=== PATIENT | female | born 1950 | race Caucasian/White ===

== ENCOUNTER → 2023-11-04 11:53 | Outpatient (REF) | payer OTHER, SELFPAY | LOC: HWRAD 11:53 | PROVIDERS: ATTENDING PHYSICIAN Nurse Practitioner | DX: M25.521 Pain in right elbow (principal) | CPT/HCPCS: 73080 ==

== ENCOUNTER 2023-11-15 16:26 | Day surgery (SDC) | payer OTHER, SELFPAY ==
[2023-11-15] VITALS (16 sets, daily range): BP systolic 99–164; BP diastolic 48–81; BMI 29.7; BMI 29.4
--- NOTE | 2023-11-15 11:06 | ED.GENMED ---
History of Present Illness
<Nohemy Antoine MD, Resident - Last Filed: 11/15/23 14:22>
General
Chief Complaint: Abdominal Pain
Time Seen by Provider: 11/15/23 10:50
History of Present Illness
History of Present Illness:
73-year-old female presented today from severe pain at her right lower abdominal area. The patient reported that her pain started last night last night around her belly and following she started to feel more pain at the right lower side. The
patient reports she was not able to take a deep sleep due this pain. She rated her pain as 10/10. the patient reports that she had bowel movement this morning. She denies throwing up, diarrhea, bleeding, shortness of breath and chest pain. Her
last oral taking was at 7.00 am ti his morning and she took her medications with some water.
PMH: GERD, Hemorrhoids, sleep apnea
If applicable-neuro sx onset
Date of onset of symptoms: 11/15/23
Past History
<Nohemy Antoine MD, Resident - Last Filed: 11/15/23 14:22>
Past History
ED Past Medical History: GERD and HTN
ED Past Surgical History: None
Social History
Tobacco: Non-smoker
Alcohol: None
Personal:
Phy Exam
<Nohemy Antoine MD, Resident - Last Filed: 11/15/23 14:22>
General Physical Exam
General Presentation: well appearing and mild distress
General age: appears stated age
General Skin: dry
General Habitus: obese
General Mental: alert
Cardiovascular Exam
Cardiovascular Exam: no edema
Pulmonary Exam
Pulmonary Exam: no respiratory distress
Gastrointestinal Exam
Gastrointestinal Exam: rebound and tender
Palpation: right lower quadrant: Moderate tenderness
Neurological Exam
Neurological Exam: alert and oriented x3
Course
<Nohemy Antoine MD, Resident - Last Filed: 11/15/23 14:22>
Orders/Labs/Results
Orders:
Orders
11/15/23 Breakfast
NPO
Allow oral meds: Yes
Allow clear liquids: No
11/15/23 10:55
CT Abd/pelvis W Iv Cont Urgent
Comment:
Reason For Exam: right lower quadrant abdominal pain.
11/15/23 10:59
0.9% Sodium Chloride 1000 ml [Nss] 1,000 ml IV BOLUS
Ketorolac [Toradol] 30 mg IV NOW STA
Morphine Sulfate 4 mg IV NOW STA
11/15/23 11:41
Complete Blood Count/With Diff Urgent
Comprehensive Metabolic Panel Urgent
PTT Urgent
Prothrombin Time Urgent
11/15/23 14:00
Piperacillin/Tazo 3.375 Gram [Zosyn] 3.375 gram in 50 ml IV NOW
11/15/23 14:01
Sequential Compression Device [Pneumatic Compression Sleeves] As Directed
Type: Knee high
DX Deep Vein Thrombosis Video Routine
11/15/23 14:02
Admit/Transfer Patient As Directed
Co-Sign Provider:
Level of Care: Post Proc/Surg Recovery
Assign to:: Medical/Surgical
Physician / Group: geronimo Rodriguez
Diagnosis: appendicitis
Reason for Overnight Stay: Standard of Care
Code Status As Directed
Resuscitation Status: Full Code
PRN Pain Medication Management As Directed
May give lesser potent ordered pain med per pt: Yes
preference::
Protocol:: Medication orders for pain may be administered in a
manner that supports deferring to patient preference
when the pt is:
-Requesting an ordered lesser potent pain medication.
Least to most potent pain medications are defined as:
acetaminophen < NSAID < tramadol < opioids (morphine,
oxycodone, hydromorphone).
- Requesting a lesser dose of the same medication IF
ORDERED.
- Requesting a less intrusive route of administration
if both routes are prescribed by the provider (PO <
IV).
11/15/23 14:19
HYDROmorphone [Dilaudid] 0.5 mg IV Q3HPRN PRN
HYDROmorphone [Dilaudid] 1 mg IV Q3HPRN PRN
Ondansetron Injectable [Zofran] 4 mg IV Q6HPRN PRN
Abnormal Lab Results
11/15/23
11:41
WBC 11.9 H 10^3/uL
(4.8-10.8)
Absolute Neuts (auto) 10.5 H 10^3/uL
(1.4-6.5)
Absolute Lymphs (auto) 0.8 L 10^3/uL
(1.2-3.4)
Neutrophils % 87.9 H %
(42.2-75.2)
Lymphocytes % 6.9 L %
(20.5-51.1)
Glucose 135 H mg/dl
(70-99)
AST 52 H U/L
(14-36)
ALT 48 H U/L
(0-35)
11/15/23 11:41
11/15/23 11:41
Vital Signs
Initial and Last Documented VS:
Initial Vital Signs
Temp Pulse Resp BP Pulse Ox
97.8 F 64 18 156/70 98
11/15/23 10:15 11/15/23 10:15 11/15/23 10:15 11/15/23 10:15 11/15/23 10:15
Last Documented Vital Signs
Temp Pulse Resp BP Pulse Ox
97.8 F 72 23 145/65 98
11/15/23 10:15 11/15/23 12:00 11/15/23 12:00 11/15/23 12:00 11/15/23 10:15
<Tod Escalante, DO - Last Filed: 11/15/23 11:16>
Orders/Labs/Results
Orders:
Orders
11/15/23 Breakfast
NPO
Allow oral meds: Yes
Allow clear liquids: No
11/15/23 10:55
CT Abd/pelvis W Iv Cont Urgent
Comment:
Reason For Exam: right lower quadrant abdominal pain.
11/15/23 10:59
0.9% Sodium Chloride 1000 ml [Nss] 1,000 ml IV BOLUS
Ketorolac [Toradol] 30 mg IV NOW STA
Morphine Sulfate 4 mg IV NOW STA
11/15/23 11:41
Complete Blood Count/With Diff Urgent
Comprehensive Metabolic Panel Urgent
PTT Urgent
Prothrombin Time Urgent
11/15/23 14:00
Piperacillin/Tazo 3.375 Gram [Zosyn] 3.375 gram in 50 ml IV NOW
11/15/23 14:01
Sequential Compression Device [Pneumatic Compression Sleeves] As Directed
Type: Knee high
DX Deep Vein Thrombosis Video Routine
11/15/23 14:02
Admit/Transfer Patient As Directed
Co-Sign Provider:
Level of Care: Post Proc/Surg Recovery
Assign to:: Medical/Surgical
Physician / Group: geronimo Rodriguez
Diagnosis: appendicitis
Reason for Overnight Stay: Standard of Care
Code Status As Directed
Resuscitation Status: Full Code
PRN Pain Medication Management As Directed
May give lesser potent ordered pain med per pt: Yes
preference::
Protocol:: Medication orders for pain may be administered in a
manner that supports deferring to patient preference
when the pt is:
-Requesting an ordered lesser potent pain medication.
Least to most potent pain medications are defined as:
acetaminophen < NSAID < tramadol < opioids (morphine,
oxycodone, hydromorphone).
- Requesting a lesser dose of the same medication IF
ORDERED.
- Requesting a less intrusive route of administration
if both routes are prescribed by the provider (PO <
IV).
11/15/23 14:19
HYDROmorphone [Dilaudid] 0.5 mg IV Q3HPRN PRN
HYDROmorphone [Dilaudid] 1 mg IV Q3HPRN PRN
Ondansetron Injectable [Zofran] 4 mg IV Q6HPRN PRN
Abnormal Lab Results
11/15/23
11:41
WBC 11.9 H 10^3/uL
(4.8-10.8)
Absolute Neuts (auto) 10.5 H 10^3/uL
(1.4-6.5)
Absolute Lymphs (auto) 0.8 L 10^3/uL
(1.2-3.4)
Neutrophils % 87.9 H %
(42.2-75.2)
Lymphocytes % 6.9 L %
(20.5-51.1)
Glucose 135 H mg/dl
(70-99)
AST 52 H U/L
(14-36)
ALT 48 H U/L
(0-35)
11/15/23 11:41
11/15/23 11:41
Vital Signs
Initial and Last Documented VS:
Initial Vital Signs
Temp Pulse Resp BP Pulse Ox
97.8 F 64 18 156/70 98
11/15/23 10:15 11/15/23 10:15 11/15/23 10:15 11/15/23 10:15 11/15/23 10:15
Last Documented Vital Signs
Temp Pulse Resp BP Pulse Ox
97.8 F 72 23 145/65 98
11/15/23 10:15 11/15/23 12:00 11/15/23 12:00 11/15/23 12:00 11/15/23 10:15
<Nohemy Antoine MD, Resident - Last Filed: 11/15/23 14:22>
MDM/Problems Addressed
Differential Diagnosis Includes:
Appendicitis, Diverticulitis, colitis, IBD, PID
MDM/Problems Addressed:
Abdominal CT, CBC, CMP were ordered.
Abdominal CT: IMPRESSION:
1. No definitive acute abnormalities within the abdomen or pelvis.
2. Fluid filled/dilated appendix measuring up to 14.9 mm proximally with distal tapering. There are multiple intraluminal calcifications compatible with appendicoliths, including at the appendiceal orifice. Findings are likely chronic in nature
with no periappendiceal stranding to suggest acute appendicitis. Mucocele is also within the differential but felt much less likely given the nature of the calcifications.
3. Several hepatic cysts measuring up to 2.5 cm within the left lobe.
4. Additional findings above.
The patient was consulted to Surgery team and was admitted by Dr. Geronimo Rodriguez
<Nohemy Antoine MD, Resident - Last Filed: 11/15/23 14:22>
*Critical Care Note
Total Time (30-74mins, 75-104mins- exclusive of procedures): Not Applicable
ED Attending Note
<Nohemy Antoine MD, Resident - Last Filed: 11/15/23 14:22>
-
Portions of this chart may have been created with voice recognition software.� Occasional wrong word or��sound alike� substitutions may have occurred due to the inherent limitations of voice recognition software.
<Tod Escalante, DO - Last Filed: 11/15/23 11:16>
ED Attending Note
Patient seen and examined by attending physician: Yes
I performed a history and physical exam of patient and discussed management with resident, I reviewed resident's note and agree with documented findings and plan of care.: Yes
ED Attending Note:
I have seen and evaluated the patient with a [id number] encounter. I have spoken to the resident and involved in the medical history, the physical exam, medical decision making.
Evaluation and management service: agree unless noted differently below.
Results interpretation: agree unless noted differently below.
Focused HPI: 73-year-old female presenting with right lower quadrant pain. It started as a vague pain yesterday. She saw her PCP. She was sent in for evaluation for acute appendicitis given point tenderness to the right lower quadrant
Physical exam: Uncomfortable. Point tenderness to right lower quadrant with localized rebound.
Medical Decision Making: Given history and physical findings, will obtain CT to rule out acute appendicitis. Will give Toradol and morphine
Discharge Plan
Departure
Patient Disposition: Admit
Date of Disposition: 11/15/23
Time of Disposition: 14:08
Admit to doctor: Geronimo Rodriguez
Presentation/result/management discussed w/ accepting MD/DO: Surgery
Patient with high blood pressure during this ER visit?: Yes
Condition: Fair
Discharge Problem:
Abdominal pain
Prescriptions:
No Action
acetaminophen [Tylenol] 325 mg Tablet
650 mg PO Q6HPRN PRN (Reason: mild pain)
cyanocobalamin (vitamin B-12) 1,000 mcg Tablet
1,000 mcg PO DAILY
Tums 300 mg (750 mg) Tablet,Chewable
300 mg PO BIDPRN PRN (Reason: stomach issues)
amlodipine 5 mg Tablet
5 mg PO DAILY
losartan 100 mg Tablet
100 mg PO DAILY
Referrals:
Umu Borrego CRNP [Family Provider] -
Interventions
Interventions:
*Risk Screen - Suicide Last Done: 11/15/23 10:15
*General Assessment Last Done: 11/15/23 10:15
*Neglect/Abuse Screening Last Done: 11/15/23 10:15
ED- Fall Risk Assessment Last Done: 11/15/23 11:20
*ED COVID-19 Vaccine History Last Done: 11/15/23 11:20
[facility]-Fmus[facility]-Xrxbotwgte Assessment Last Done: 11/15/23 11:20
Discharge Date and Time
Print Language: LAO
[2023-11-15] MEDS: NSS 1000 IV ×3 (11:41→20:20)
[2023-11-15] MEDS: TORADOL 30 MG IV (11:42)
[2023-11-15] MEDS: MORPHINE SULFATE 4 MG IV (11:43)
[2023-11-15 11:55] LABS: % Basophils 0.2 % (0-2); % Eosinophils 0.1 % (0-6); % Immature Granulocytes 0.3 % (0-0.5); % Lymphocytes 6.9 % (20.5-51.1); % Monocytes 4.6 % (1.7-9.3); % Neutrophils 87.9 % (42.2-75.2); Absolute Lymphocytes 0.8 10^3/uL (1.2-3.4); Absolute Monocytes 0.6 10^3/uL (0.1-0.6); Absolute Neutrophils 10.5 10^3/uL (1.4-6.5); Hemoglobin 14.2 g/dL (12.0-16.0); Mean Corp Hgb Conc. 34.6 g/dL (33.0-37.0); Mean Corpuscular Hgb 30.5 pg (27.0-31.0); Mean Platelet Volume 10.3 fL (7.4-10.4); Nucleated Red Blood Cells % 0 %; Platelet Count 223 10^3/uL (130-400); Red Blood Cell Count 4.66 10^6/uL (4.20-5.40); Red Cell Dist. Width 13.2 % (11.5-14.5); White Blood Cell Count 11.9 10^3/uL (4.8-10.8)
[2023-11-15 12:04] LABS: INR 1.07; PT 13.7 Sec (11.4-14.6)
[2023-11-15 12:05] LABS: APTT 25.5 Sec (23.4-35.0)
[2023-11-15 12:10] LABS: ALT (SGPT) 48 U/L (0-35); AST (SGOT) 52 U/L (14-36); Albumin 4.9 g/dl (3.5-5.0); Alkaline Phosphatase 85 U/L (38-126); Blood Urea Nitrogen 14 mg/dl (7-17); Calcium 10.2 mg/dl (8.4-10.2); Carbon Dioxide 26 mmol/L (22-30); Chloride 102 mmol/L (98-107); Estimated Creatinine Clearance 73 ml/min; Glucose 135 mg/dl (70-99); Potassium 4.5 mmol/L (3.5-5.1); Sodium 139 mmol/L (135-145); Total Bilirubin 0.9 mg/dl (0.2-1.3); Total Protein 7.9 g/dl (6.3-8.2); eGFR > 60.00
--- NOTE | 2023-11-15 14:05 | HPS.HSE ---
Addendum entered and electronically signed by Tashi Rodriguez MD 11/15/23 15:09:
Patient is a 73 yo F with a PMH of HTN and GERD who presents with 24 hours of RLQ abdominal pain. Ms. bolivar states that her symptoms began acutely yesterday evening. She describes persistent RLQ abdominal pain prompting presentation to her PCP this
a.m. Initially scheduled as an outpatient CT but as her pain worsened she was directed to present to the ED. No nausea or vomiting. No fevers or chills. Chronic issues with constipation. Currently she states that her pain has improved with pain
medication. Most recent colonoscopy was in 2021 and notable for hyperplastic polyps at the hepatic flexure and sigmoid. No family history notable for GI malignancies.
Gen: NAD
Abd: soft, tender to palpation in the RLQ, ND, non-peritoneal
Labs and CT scan imaging was reviewed
Patient is a 73 yo F p/w acute appendicitis
The natural history and pathophysiology of appendicitis was discussed. Anatomy was reviewed. CT scan imaging as a relates to her appendix was reviewed. Options for management including medical management with antibiotics for surgical management
with appendectomy were considered. Given the presence of appendicoliths she is a poor medical management candidate. Plan for appendectomy.
Plan for laparoscopic appendectomy. The procedure itself, as well as the risks, benefits, and alternatives was discussed. Specifically, we discussed the risks of bleeding infection injury to surrounding structures (bowel, bladder), staple line
leak, need for open procedure. Typical postprocedural recovery was discussed. All questions answered. Consent signed.
-- Laparoscopic appendectomy
-- NPO, IVF
-- Antibiotics: Zosyn
-- Pain control: Tylenol and IV Dilaudid as needed
Original Note:
Family Physician
-
Family Physician: UZMA Hamilton
Chief Complaint
-
abdominal pain
History of Present Illness
Ms Trevino is a 73 yo female with a h/o HTN and GERD who presents with abdominal pain which began yesterday evening and was generalized initially. She tried Tums to see if this would help without much benefit. She notes the pain was achy initially but
began to localize to her right lower quadrant this morning causing her to present to her PCP for evaluation. Initially, an outpatient CT was going to be obtained, but as her pain continued to worsen she was directed to present to the ED for further
evaluation. She denies nausea or vomiting but has had a poor appetite and did not eat today. She denies bladder or bowel changes. She denies fevers or chills. On exam, there is tenderness to the RLQ but mild as she had just received analgesics prior
to my exam.
Medical History
Past Medical History
Past Medical History: Reports GERD, HTN and Other (Right shoulder labral tear)
Past Surgical History: Reports Other (Colonoscopies routinely with polyps removed: last one was 2021)
Social History
Tobacco: Non-smoker
Alcohol: None
Personal:
Living: With Family
Family History
Family History: Cancer (brother with renal ca)
Allergies / Home Medications
Allergies reflects when Allergies were last updated in [employer].
Home Medications with original date entered in [employer]
Allergy/Medication List:
Patient Allergies
Allergy/AdvReac Type Severity Reaction Status Date / Time
azithromycin AdvReac Mild diarrhea Verified 11/15/23 10:15
�Medication �Instructions �Recorded �Confirmed �Type
acetaminophen 325 mg tablet 650 mg PO Q6HPRN PRN mild pain 11/15/23 11/15/23 History
(Tylenol)
amlodipine 5 mg tablet 5 mg PO DAILY 11/15/23 11/15/23 History
calcium carbonate (Tums) 300 mg PO BIDPRN PRN stomach issues 11/15/23 11/15/23 History
cyanocobalamin (vitamin B-12) 1,000 mcg PO DAILY 11/15/23 11/15/23 History
1,000 mcg tablet
losartan 100 mg tablet 100 mg PO DAILY 11/15/23 11/15/23 History
Review of Systems
-
History Source: Patient and Family
A 12 point ROS was completed and negative except as noted: Yes
Physical Exam
Vital Signs
Vital Signs
Temp Pulse Resp BP Pulse Ox
97.8 F 72 23 145/65 98
11/15/23 10:15 11/15/23 12:00 11/15/23 12:00 11/15/23 12:00 11/15/23 10:15
Physical Exam
General: Well Developed and Well Nourished
HEENT: Moist mucous membranes
Respiratory: Non Labored Respirations
Cardiac: Regular Rhythm
GI: Soft, Non Distended and Tender (RLQ)
Skin: Warm and Dry
Neuro: Awake, Alert and AO x 3
Laboratory Results
-
11/15/23 11:41
11/15/23 11:41
Laboratory Results
PT 13.7 Sec (11.4-14.6) 11/15/23 11:41
INR 1.07 11/15/23 11:41
APTT 25.5 Sec (23.4-35.0) 11/15/23 11:41
Total Bilirubin 0.9 mg/dl (0.2-1.3) 11/15/23 11:41
AST 52 U/L (14-36) H 11/15/23 11:41
ALT 48 U/L (0-35) H 11/15/23 11:41
Alkaline Phosphatase 85 U/L (38-126) 11/15/23 11:41
Data Reviewed
-
CT Scan: Image Personally Visualized and interpreted, Report Reviewed by me, Discussed with Physician, Discussed with Patient and Discussed with Family
Lab Data: Labs Reviewed by me, Discussed with Physician, Discussed with Patient and Discussed with Family
Old Records: Reviewed
Impression/Plan
-
IMPRESSION:
73 yo female with no prior surgical history who presents with abdominal pain beginning yesterday evening and localizing to the RLQ today. CT imaging reviewed with findings of acute appendicitis with appendicolith present. Tender to the RLQ although
pain improved s/p analgesics. Mild leukocytosis present. AFVSS.
PLAN:
Keep NPO
OR tentatively later today pending availability
Analgesics/antiemetics prn
IVF with NSS at 80ml/hr while NPO
Start IV Zosyn 3.375gm q6h
SCDs/TEDs for VTE ppx
[2023-11-15] MEDS: ZOSYN 50 IV (14:11)
[2023-11-15] MEDS: DILAUDID 0.5 MG IV (15:27)
--- NOTE | 2023-11-15 16:20 | PTCARENOTE ---
Pt arrived to 2S on a stretcher, ambulated to bed with a standby assist, gait steady. IVF initiated and infusing. Pt denies need for pain medication at this time. Surgical bath completed. Bed locked and in the lowest position, safety maintained.
Oriented to room and call landeros, spouse at bedside.
--- NOTE | 2023-11-15 18:03 | W.SUR.PREOP ---
Pre-Operative Surgical Note
-
I have examined this patient prior to the performance of the scheduled procedure.
The patient's condition is unchanged from the time of the current History and
Physical and the patient is able to undergo the scheduled procedure.
--- NOTE | 2023-11-15 19:39 | W.IMMPOSTOP ---
Surgical Immed Post Op Note
-
Primary Surgeon: Michael
Assisting Surgeon: None
Pre-op Diagnosis: Acute appendicitis
Post-op Diagnosis: Acute appendicitis
Procedure Performed: Laparoscopic appendectomy
Anesthesia Type: General
Specimen / Cultures:
1. Appendix
Estimated Blood Loss: 7 cc
Complications: None
Operative Findings:
1. Acutely inflamed and gangrenous appendix, mild purulent fluid within pelvis, no evidence of perforation
2. Mesentery take with [employer], base with purple load stapler
Plan:
-- Would continue abx for 4 days post-op
[2023-11-15] MEDS: ZOSYN IV (20:11)
--- NOTE | 2023-11-15 21:16 | PTCARENOTE ---
patient arrived from PACU to 2South in bed. AAOx3 but somewhat drowsy. Surgical lap sites x3 CDI. VSS, patient on 4LNC. Patient's at bedside, all questions and concerns answered.
[2023-11-16 00:05] VITALS: BP 136/71
[2023-11-16 00:52] VITALS: BP 129/70
[2023-11-16] MEDS: ZOSYN 50 IV ×2 (01:48→07:55)
[2023-11-16] MEDS: TYLENOL 1000 MG PO ×2 (02:30→09:56)
[2023-11-16 06:05] LABS: Hematocrit 38.1 % (37.0-47.0); Hemoglobin 13.2 g/dL (12.0-16.0); Mean Corp Hgb Conc. 34.6 g/dL (33.0-37.0); Mean Corpuscular Volume 89.4 fL (81.0-99.0); Mean Platelet Volume 10.3 fL (7.4-10.4); Platelet Count 167 10^3/uL (130-400); Red Blood Cell Count 4.26 10^6/uL (4.20-5.40); Red Cell Dist. Width 13.1 % (11.5-14.5); White Blood Cell Count 13.3 10^3/uL (4.8-10.8)
[2023-11-16 06:21] LABS: Blood Urea Nitrogen 15 mg/dl (7-17); Calcium 8.8 mg/dl (8.4-10.2); Carbon Dioxide 22 mmol/L (22-30); Chloride 106 mmol/L (98-107); Estimated Creatinine Clearance 72 ml/min; Glucose 175 mg/dl (70-99); Potassium 3.9 mmol/L (3.5-5.1); Sodium 138 mmol/L (135-145); eGFR > 60.00
[2023-11-16 07:00] VITALS: BP 112/68
[2023-11-16] MEDS: COZAAR 100 MG PO (07:55)
[2023-11-16] MEDS: NORVASC 5 MG PO (07:55)
[2023-11-16] MEDS: NSS 1000 IV (07:58)
--- NOTE | 2023-11-16 09:49 | CM ---
manager of project management reviewed patient's chart and met with patient and patient lives with spouse in a split level home, 6 steps up and 6 steps down. Patient is independent with adl's and ambulation, no dme, patient drives.
Pharmacy: [facility]
PCP: Dr. Borrego
Plan; Home when stable, no needs.
--- NOTE | 2023-11-16 10:08 | W.PN.GS2 ---
Today's Communication / Plan
-
Dispo planning
Assessment / Plan
-
73 yo female presenting with acute appendicitis now POD #1 lap appi with gangrenous appendix noted intraop
Denies n/v. Tolerating diet
No fevers post op, VSS
Labs stable
--Discharge to home
--Continue ABX x4 days, script sent for Augmentin
--Analgesics as needed
Subjective Data
-
Date of Service: November 16, 2023
Patient seen and examined at bedside with Dr. Hughes. Denies n/v. Tolerating diet. Pain much better than pre op.
Objective Data
-
Intake and Output
11/15/23 11/16/23 11/17/23
06:59 06:59 06:59
Intake Total 1830 / 1830
Output Total 950 / 950
Balance 880 / 880
Intake:
Oral fluids 745 / 745
IV fluids (Total) 1085 / 1085
Norm 25 / 25
Nss 1,000 ml @ 80 mls/hr IV . 60 / 60
[id number] ARACELI Rx#:[id number]
Output:
Urine, Voided 950 / 950
Vital Signs
Temp Pulse Resp BP Pulse Ox
97.9 F 80 16 112/68 93
11/16/23 07:00 11/16/23 07:00 11/16/23 07:00 11/16/23 07:00 11/16/23 07:00
Lab Results
11/16/23 05:41
11/16/23 05:41
Calcium 8.8 mg/dl (8.4-10.2) 11/16/23 05:41
Total Bilirubin 0.9 mg/dl (0.2-1.3) 11/15/23 11:41
AST 52 U/L (14-36) H 11/15/23 11:41
ALT 48 U/L (0-35) H 11/15/23 11:41
Alkaline Phosphatase 85 U/L (38-126) 11/15/23 11:41
Total Protein 7.9 g/dl (6.3-8.2) 11/15/23 11:41
Albumin 4.9 g/dl (3.5-5.0) 11/15/23 11:41
Physical Exam
-
NAD
ABD soft, mild tenderness to the RLQ and incisions, ND
Incisions with intact glue, no erythema
[2023-11-16 11:05] VITALS: BP 111/60
== END 2023-11-16 11:52 | disposition home or self-care (01) ==
LOC: SDS 16:26
PROVIDERS: ATTENDING PHYSICIAN Surgery; EMERGENCY PHYSICIAN Student in an Organized Health Care Education/Training Program; FAMILY PHYSICIAN Nurse Practitioner
DX: K35.891 Other acute appendicitis without perforation, with gangrene (principal)
CPT/HCPCS: 44970; 88304; 74177; 80048; 80053; 85025; 85027; 85610; 85730; 93005; 96361; 96365; 96375; 99285; C1776; Q9967